=== PATIENT | male | born 1960 | race Two or more races ===

== ENCOUNTER 2019-09-07 08:08 | Day surgery (SDC) | payer OTHER ==
[~2019-09-07 08:08] MED LIST: AZACTAM; COLACE100 MG PO; MUCINEX DM TABL1 BOX; PERCOCET 5-3251 EACH PO
== END 2019-09-07 12:35 | disposition home or self-care (01) ==
LOC: AMB-ENDOS 08:08
DX: A63.0 Anogenital (venereal) warts (principal); K62.0 Anal polyp; K62.1 Rectal polyp; K57.30 Diverticulosis of large intestine without perforation or abscess without bleeding

== ENCOUNTER 2020-10-03 07:23 | Outpatient (CLI) | payer OTHER | END 2020-10-03 07:31 | disposition home or self-care (01) | LOC: RAD 07:23 | PROVIDERS: ATTEND Surgery | DX: K60.0 Acute anal fissure (principal); K62.89 Other specified diseases of anus and rectum ==

== ENCOUNTER 2020-10-07 05:45 | Day surgery (SDC) | payer OTHER ==
[2020-10-07] MEDS ORDERED: PERCOCET 5-3251 EACH PO (08:55)
== END 2020-10-07 15:25 | disposition home or self-care (01) ==
LOC: CIR.AMB 05:45
PROVIDERS: ATTEND Surgery
DX: A63.0 Anogenital (venereal) warts (principal)